=== PATIENT | female | born 1950 | race Caucasian/White ===

== ENCOUNTER 2020-06-06 10:44 | Day surgery (SDC) | payer MEDICARE, MEDICAID, SELFPAY ==
--- NOTE | 2020-05-30 13:12 | EKG12_ITS ---
Test Reason : PREOP Blood Pressure : / mmHG Vent. Rate : 063 BPM Atrial Rate : 063 BPM P-R Int : 180 ms QRS Dur : 090 ms QT Int : 430 ms P-R-T Axes : 024 -13 046 degrees QTc Int : 440 ms Normal sinus rhythm Normal ECG Confirmed by STACEY NAIK, CASE ([id number]), technical writer and editor NEAL ANTONIO ([id number]) on 06/03/2020 8:08:28 AM Referred By: Juan Pablo Melo Confirmed By:EARL IBARRA MD
[2020-05-30 13:40] LABS: Hematocrit 40.5 % (37-47); Hemoglobin 13.2 g/dL (12.0-15.0); Mean Corp Hgb Conc 32.6 g/dL (32-36); Mean Corpuscular Hgb 29.6 pg (27.0-32.0); Mean Corpuscular Volume 90.8 fL (81-99); Mean Platelet Vol. 10.5 fl (6.2-12.0); Platelet Count 258 K/mm3 (150-450); RBC Distribution Width SD 43.6 fl (35.1-43.9); Red Blood Count 4.46 M/mm3 (4.2-5.4); White Blood Count 6.9 K/mm3 (4.4-11.0)
[2020-05-30 13:49] LABS: Partial Thromboplast Time 27.2 Seconds (24.1-36.2); Prothrombin Time (Protime)PT. 12.5 SECONDS (11.7-14.9)
[2020-05-30 14:07] LABS: AST(SGOT) 21 U/L (15-37); Alanine Aminotransfer ALT/SGPT 22 U/L (13-56); Albumin, Serum 3.9 g/dL (3.2-5.0); Alkaline Phosphatase 91 U/L (45-117); Bilirubin, Direct 0.11 mg/dL (0.00-0.30); Globulin 3.1 g/dL (2.2-4.2)
[2020-05-30 14:09] LABS: Anion Gap 7 (5-15); BUN 16 mg/dL (7-18); BUN/Creat Ratio 20.4 RATIO (10-20); Calcium,Total 8.8 mg/dL (8.5-10.1); Chloride 109 mmol/L (98-107); Creatinine, Serum 0.78 mg/dL (0.55-1.02); EST Glomerular Filtration Rate 77 mL/min (>60); Est Glom Filt Rate - Afr Amer 94 mL/min (>60); Glucose 91 mg/dL (74-106); Potassium 4.1 mmol/L (3.5-5.1); Sodium Level 142 mmol/L (136-145)
[2020-06-06] VITALS (9 sets, daily range): BP systolic 127–163; BP diastolic 52–91; PULSE 61–70; RESP 14–16; TEMP 36.1–37.7; O2SAT 95–100; BMI 34.3
--- NOTE | 2020-06-06 | ETH_PTH ---
PATIENT: CASSANDRA ALONSO [place] [facility] [place][id number] AGE/SX: 69/F ROOM: RE06/06/[address]: Dr. Juan Pablo Melo MD : 1950 BED: DIS: 06/06/2020 SPEC #: [id number] RECD: 06/06/20 15:01 STATUS: LOYDA MARGOT #: [id number] OSCAR: 06/06/20 00:[address]: Juan Pablo Melo DEPT: SURGICAL PATHOLOGY RECD BY: Julio César John ENTERED: 06/09/20 08:16 SP TYPE: ETH TISS OTHR DR: Ana Lilia Peterson, JAMILAH Tissues: A - Ethmoid sinus, NOS B - Ethmoid sinus, NOS Procedures: Decalcification bone/plaque Surgery Specimen Level III HEADER OPERATION: Septoplasty, submucous resection inferior turbinates PRE-OP DIAGNOSIS: Deviated nasal septum, hypertrophy of nasal turbinates, chronic ethmoidal sinusitis, chronic frontal sinusitis TISSUE SUBMITTED: A - Left sinus contents, B - Right sinus contents MICROSCOPIC DIAGNOSIS A. Left sinus contents, curettings: Consistent with chronic sinusitis. Fragments of hyaline cartilage and bone with no pathologic change. B. Right sinus contents, curettings: Consistent with chronic sinusitis. Fragments of bone with no pathologic change. Occasional bacterial colonies identified. AM:gualberto 06/12/20 MICROSCOPIC DESCRIPTION Slides are reviewed. GROSS DESCRIPTION A - Received in fixative is one container labeled with the patient's name and designated left sinus contents. The specimen consists of multiple irregular fragments of light white cartilage, bone and soft tissue that in aggregate measure 3.5 x 3 x 0.4 cm. Enterprise Resource [employer] portions are submitted in two cassettes as follows: 1 - soft tissue, 2 - bone and cartilage and after decalcification. B - Received in fixative is one container labeled with the patient's name and designated right sinus contents. The specimen consists of multiple irregular fragments of light white cartilage, bone and soft tissue that in aggregate measure 4 x 3 x 0.3 cm. [employer] Resource [employer] portions are submitted in two cassettes as follows: 1 - soft tissue, 2 - bone and cartilage and after decalcification. / AM:gualberto 06/09/20 TC:3 CPT: 34010 x2, 27386 x2
[2020-06-06] MEDS: Lactated Ringers 1,000 ML 100 ML IV ×2 (11:20→14:52)
[2020-06-06] MEDS: Bacitracin 500 UNITS/GM PACKET (13:30)
[2020-06-06] MEDS: Oxymetazoline 0.05% 1 SPRAY SPRAY.BTL 15 SPRAY (13:30)
[2020-06-06] MEDS: Lidocaine 4% 50 ML Bottle (13:30)
--- NOTE | 2020-06-06 14:30 | DCINST_ITS ---
You will use the following diet at home:: No restrictions Discharge Activity: Return to Normal Activity, May not drive while taking narco tic pain medications. Call your doctor if your incision/area has: Sudden Increased Bleeding, Foul Smelling Discharge Call your doctor if you observe: Fever of 101 or Higher, Uncontrolled pain Allergies/Adverse Reactions: Allergies sulfamethoxazole [From Bactrim] Allergy (Verified 06/06/20 11:00) Swelling trimethoprim [From Bactrim] Allergy (Verified 06/06/20 11:00) Swelling moxifloxacin [From Avelox] Adverse Reaction (Verified 06/06/20 11:00) NEEDS FOLLOW-UP Medications to take at Discharge Amlodipine Besylate/Benazepril [Lotrel 5-10 mg Capsule] 1 ea PO DAILY 05/29/20 Ascorbic Acid [Vitamin C] 500 mg PO DAILY 05/29/20 Beta-Carotene(A)-Vits C,E/Mins [Ocutabs Tablet] 1 ea PO QODAY 05/29/20 Cholecalciferol (Vitamin D3) [Vitamin D3] 100 mcg PO DAILY 05/29/20 Omeprazole 20 mg PO BID 05/29/20 Rutin/Hesp/Bioflav/C/[id number] [Bioflex Tablet] 1 ea PO DAILY 05/29/20 Primary Care Physician: Ana Lilia Peterson ELEVATOR SERVICE TECHNICIAN, ELEVATOR SERVICE TECHNICIAN-C [Primary Care Provider] - Test Results: Test results from this visit will be discussed in further detail at your follow- up appointment, if applicable. Please Follow Up With: Juan Pablo Melo MD When: 5 days
--- NOTE | 2020-06-06 14:31 | OP.PCM_ITS ---
Problem List (1) Deviated nasal septum Status: Chronic (2) Hypertrophy of both inferior nasal turbinates Status: Chronic (3) Chronic frontal sinusitis Status: Chronic (4) Chronic ethmoidal sinusitis Status: Chronic Report of Operation Date of Procedure: 06/06/20 Pre-Operative Diagnosis: Deviated nasal septum, hypertrophy inferior nasal tu rbinates, chronic frontal and ethmoid sinusitis Post-Operative Diagnosis: Same Surgery/Procedure Performed:: Septoplasty, submucous resection of bilateral inferior nasal turbinates, bilateral endoscopic frontal sinusotomy, revision total ethmoidectomy Description of Surgical Findings:: Baldemar is a 69-year-old female who presents with complaints of chronic sinusitis and nasal congestion despite prior sinus surgery. Physical examination and follow-up CT scanning showed ongoing obstruction of the nasal valve from deviation of nasal septum and hypertrophied inferior nasal turbinates as well as chronic anterior ethmoid and frontal sinus disease and revision surgery was offered in hopes of improvement of her complaints. The risk of coronavirus exposure in this time with operative treatment was discussed and she was agreeable to accept this risk in the interest of treating her other complaints. The risks, alternatives, potential complications, and benefits were discussed at length and any questions answered to the patient and/or caregiver's satisfaction. Witnessed informed consent was obtained in the office, and the patient and/or caregiver was agreeable to proceed. Procedure went as follows: The patient was identified in the preoperative holding and brought to the operating room, was placed under general anesthesia and intubated. When appropriate anesthesia was obtained, pledgets soaked in a 50-50 mixture of oxymetazoline and 4% topical lidocaine were placed to decongest the nasal mucosa. The nasal septum was then injected beginning on the left side with 1% lidocaine with 100,000 epinephrine for a total of 5 mL. The pledgets were then removed and the left nasal cavity examined. There was noted to be significant nasal septal deviation to the high to the right. Using a 15 blade scalpel, a hemitransfixion incision was then made on the left side and using the Bronson elevator a subperichondrial/periosteal flap was elevated. The septum was then transected at the bony cartilaginous junction and a similar flap raised on the contralateral side. Using a Christian forceps, the septum was then sharply transected superiorly and the deviated portions removed with a Angelique forceps. Any inferior bony spur was then removed with a chisel allowing for midline placement of the nasal septum. The hemitransfixion incision was then closed with interrupted 4-0 chromic gut suture followed by a 4-0 plain quilting suture to reapproximate the mucosal flaps. Attention was then turned into revision of the sinus and beginning on the left side using a 0? endoscope the nasal cavity examined. The insertion of the middle turbinate and uncinate process was then injected with 1% lidocaine with 100,000 epinephrine for a total of 2 mL, and a similar injection was then carried on the contralateral side. There is noted to be residual ethmoid air cells anteriorly with small obstructing polyps. This was then resected piecemeal with J curettes, rongeurs, and through cup forceps. The middle turbinate impinge significantly on the nasal passage and this was then trimmed removing the lower two thirds which resulted in great improvement of nasal patency. The frontal sinus ostia was then probed and the obstructing polyps removed. Similar procedures included on the contralateral side. The posterior resection of the middle turbinate was then cauterized with suction electrocautery to control a small branch of the sphenopalatine artery resulting in excellent hemostasis. Attention was then turned to the inferior nasal turbinates. Beginning on the left side, the anterior aspect of the inferior turbinate was then injected with 1% lidocaine with 100,000 epinephrine for a total of 2.5 mL bilaterally. Again beginning on the left side a 15 blade scalpel was used to create a stab incision in the anterior aspect of the turbinate. A caudal elevator was then used to elevate a submucosal plane. Using the microdebrider, the anterior bony and intervening submucosal tissue was then removed resulting in reduction of the inferior turbinate. Similar procedure was then completed on the contralateral side. Rm splints were then applied after coating with bacitracin ointment and secured to the columella with a single 3-0 Prolene suture. An NG tube was then placed to decompress the stomach and the patient returned to anesthesia, revived and extubated having tolerated the procedure well.. Type of Anesthesia:: General Anesthesiologist: Robert Lucero Special Medications: none Specimen's removed: septal, turbinate, and sinus contents Drains: none Estimated Blood Loss (mL): 100 mL Fluids Replaced: 2100 mL Grafts/Implants Used: Rm splints - Complications none - Admit VTE Documentation VTE Present on Admission: No VTE Mechan Device Prophylaxis: SCD's VTE Pharm Prophylaxis ordered?: No
== END 2020-06-06 17:32 | disposition home or self-care (01) ==
LOC: SDC 10:45 → AC 10:46
PROVIDERS: Anesthesiology; PCP Nurse Practitioner Family; Referring Provider Otolaryngology; Visit Provider Otolaryngology
PROC: (CPT 30140; principal; 2020-06-06 11:55)
DX: J34.2 Deviated nasal septum (principal); J34.3 Hypertrophy of nasal turbinates; Z11.59 Encounter for screening for other viral diseases; J32.1 Chronic frontal sinusitis; J32.2 Chronic ethmoidal sinusitis; R23.3 Spontaneous ecchymoses; I10 Essential (primary) hypertension; K21.9 Gastro-esophageal reflux disease without esophagitis; Z78.0 Asymptomatic menopausal state; Z79.899 Other long term (current) drug therapy
CPT/HCPCS: 30140; 30520; 31253; 36415; 80048; 80076; 85027; 85610; 85730; 87635; 88304; 88305; 88311; 93005; C9803; J7120; J2405; U0003